=== PATIENT | female | born 1995 | race Caucasian/White ===

== ENCOUNTER 2017-06-21 00:20 | Emergency (ER) | payer SELFPAY ==
[~2017-06-21] VITALS: Ht 160 cm; Wt 92.5 kg
[2017-06-21 00:22] VITALS: BP 143/84; PULSE 124; RESP 24; TEMP 98.8; O2SAT 97
[2017-06-21] MEDS ORDERED: TOPA25TA8 PO (00:37)
--- NOTE | 2017-06-21 00:42 | PD ---
HPI Chief Complaint: Abdominal Pain Time Seen by Provider: 00:33 Travel History International Travel<30 days: No Contact w/Intl Traveler<30days: No Traveled to known affect area: No History of Present Illness HPI The patient is a 21 year old female who presents to the [facility] emergency department with a history of abdominal pain that began this morning. It is in the suprapubic area and radiates to the midepigastric area. It is a constant pain. It is intermittently sharp. She has vomiting x2. She last had diarrhea 3-4 days ago. It occurred all day. She moved her bowels normally today. She has had a recent subjective fever. The patient denies any history of fever, cough, congestion, neck pain, chest pain, shortness of breath, urinary symptoms, or neurologic symptoms. She denies any unusual vaginal discharge. She reports having recent indigestion and heart burn symptoms. LMP 05/29/17. [facility] Past Medical History Narrative Medical The patient's past medical history is significant for migraines, asthma. Asthma: Yes Respiratory: Yes (Asthma) Migraines: Yes Tetanus Vaccination: Unknown Influenza Vaccination: No ?: Unknown LMP: 05/29/17 Past Surgical History Narrative Surgical The patient's past surgical history is significant for lumbar surgery for a herniated disc. Neurologic Surgery: Yes (LUMBAR) Social History Alcohol Use: No Tobacco Use: No Substance Use: No Allergies-Medications (Allergen,Severity, Reaction): Coded Allergies: Codeine (Verified Allergy, Severe, 06/21/17) Morphine (Verified Allergy, Severe, 06/21/17) Percocet (Verified Allergy, Severe, 06/21/17) Uncoded Allergies: aloe vera (Allergy, Severe, 06/21/17) Reported Meds & Prescriptions Reported Meds & Active Scripts Active Bentyl (Dicyclomine HCl) 10 Mg Cap 10 Mg PO TID PRN Reported Topamax (Topiramate) 25 Mg Tab 25 Mg PO BID Review of Systems Except as stated in HPI: all other systems reviewed are Neg General / Constitutional: No: Fever Eyes: No: Visual changes HENT: No: Headaches Cardiovascular: No: Chest Pain or Discomfort Respiratory: No: Shortness of Breath Gastrointestinal: Positive: Nausea, Vomiting, Diarrhea, Abdominal Pain, Constipation, Changes in Bowel Habits, Indigestion, No: Hematemesis, Hematochezia, Loss of Appetite Genitourinary: No: Dysuria Musculoskeletal: No: Pain Skin: No Rash Neurologic: No: Weakness Psychiatric: No: Depression Endocrine: No: Polydipsia Hematologic/Lymphatic: No: Easy Bruising Physical Exam Narrative General: The patient is a well-developed well-nourished female in no acute distress. Head and Neck exam: Head is normocephalic atraumatic. Eyes: EOMI, pupils are equal round and reactive to light. Nose: Midline septum with pink mucous membranes Mouth: Dentition unremarkable. Moist mucus membranes. Posterior oropharynx is not erythematous. No tonsillar hypertrophy. Uvula midline. Airway patent. Neck: No palpable lymphadenopathy. No nuchal rigidity. No thyromegaly. Cardiovascular: Regular rate and rhythm without murmurs, gallops, or rubs. Lungs: Clear to auscultation bilaterally. No wheezes, rhonchi, or rales. Abdomen: Soft, with tenderness on palpation of the right upper and right lower quadrant of the abdomen. No point tenderness specifically over McBurney's point. No guarding, rebound, or rigidity. Negative Sinking Spring sign. Normal bowel sounds are audible. Extremities: No clubbing, cyanosis, or edema. 2+ pulses in all 4 extremities. No calf tenderness on palpation. Back: No spinous process tenderness to palpation. No costovertebral angle tenderness to palpation. Neurologic Exam: Grossly nonfocal. Skin Exam: No rash noted. Intact skin that is warm and dry. Data Data Last Documented VS Vital Signs Date Time Temp Pulse Resp B/P Pulse Ox O2 Delivery O2 Flow Rate FiO2 06/21/17 00:45 82 20 117/75 99 Room Air 06/21/17 00:22 98.8 Orders Ed Urine Pregnancytest Poc (06/21/17 00:45) Complete Blood Count With Diff (06/21/17 00:47) Comprehensive Metabolic Panel (06/21/17 00:47) Urinalysis - C+S If Indicated (06/21/17 00:47) Iv Access Insert/Monitor (06/21/17 00:47) Lipase (06/21/17 00:47) Sodium Chlor 0.9% 1000 Ml Inj (Ns 1000 M (06/21/17 01:00) Ondansetron Inj (Zofran Inj) (06/21/17 01:00) Ct Abd/Pel W Iv Contrast(Rout) (06/21/17 01:55) Iohexol 350 Inj (Omnipaque 350 Inj) (06/21/17 02:46) Labs Laboratory Tests Test 06/21/17 06/21/17 00:50 02:00 White Blood Count 13.5 TH/MM3 Red Blood Count 4.17 MIL/MM3 Hemoglobin 13.0 GM/DL Hematocrit 37.5 % Mean Corpuscular Volume 89.9 FL Mean Corpuscular Hemoglobin 31.2 PG Mean Corpuscular Hemoglobin 34.7 % Concent Red Cell Distribution Width 12.5 % Platelet Count 347 TH/MM3 Mean Platelet Volume 8.3 FL Neutrophils (%) (Auto) 59.4 % Lymphocytes (%) (Auto) 31.6 % Monocytes (%) (Auto) 7.3 % Eosinophils (%) (Auto) 1.1 % Basophils (%) (Auto) 0.6 % Neutrophils # (Auto) 8.1 TH/MM3 Lymphocytes # (Auto) 4.3 TH/MM3 Monocytes # (Auto) 1.0 TH/MM3 Eosinophils # (Auto) 0.1 TH/MM3 Basophils # (Auto) 0.1 TH/MM3 CBC Comment DIFF FINAL Differential Comment Sodium Level 141 MEQ/L Potassium Level 3.9 MEQ/L Chloride Level 107 MEQ/L Carbon Dioxide Level 25.2 MEQ/L Anion Gap 9 MEQ/L Blood Urea Nitrogen 10 MG/DL Creatinine 0.78 MG/DL Estimat Glomerular Filtration 93 ML/MIN Rate Random Glucose 118 MG/DL Calcium Level 8.9 MG/DL Total Bilirubin 0.2 MG/DL Aspartate Amino Transf 17 U/L (AST/SGOT) Alanine Aminotransferase 25 U/L (ALT/SGPT) Alkaline Phosphatase 80 U/L Total Protein 7.5 GM/DL Albumin 3.7 GM/DL Lipase 90 U/L Urine Color YELLOW Urine Turbidity HAZY Urine pH 5.5 Urine Specific Hana 1.028 Urine Protein TRACE mg/dL Urine Glucose (UA) NEG mg/dL Urine Ketones NEG mg/dL Urine Occult Blood NEG Urine Nitrite NEG Urine Bilirubin NEG Urine Urobilinogen 2.0 MG/DL Urine Leukocyte Esterase NEG Urine RBC LESS THAN 1 /hpf Urine WBC 1 /hpf Urine Squamous Epithelial 3 /hpf Cells Urine Bacteria OCC /hpf Urine Mucus FEW /lpf Microscopic Urinalysis Comment CULT NOT INDICATED MDM Medical Decision Making Medical Screen Exam Complete: Yes Emergency Medical Condition: Yes Medical Record Reviewed: Yes Interpretation(s) Last Impressions Abdomen/Pelvis CT 06/21/17 0155 Signed Impressions: Service Date/Time: Wednesday, June 21, 2017 02:41 - CONCLUSION: 1. Unremarkable bowel gas pattern. 2. Mild hepatic steatosis. 3. Unremarkable gallbladder. Joe Carroll MD Differential Diagnosis Appendicitis, versus biliary colic, versus acute cholecystitis, versus colitis, versus ectopic , versus gastroenteritis, versus trapped gas, versus colonic spasm Narrative Course During the course of the patients emergency department visit, the patients history, examination, and differential diagnosis were reviewed with the patient. The patient had IV access obtained and blood work sent for analysis. The patient was put on a court monitor with oximetry and blood pressure monitoring. The patient was initially provided normal saline 1 L IV fluid bolus, Zofran 4 mg IV. The patients laboratory studies were reviewed and remarkable for a white count of 13.5, hemoglobin 13, platelets 347 with an unremarkable differential, CMP is remarkable for glucose of 118, lipase 90, urinalysis is unremarkable Radiology studies were reviewed and remarkable for a CT scan of the abdomen and pelvis that shows an unremarkable bowel gas pattern, mild hepatic steatosis, unremarkable gallbladder. The patient will be discharged home with a perception for Bentyl and Zofran. The patient is resting comfortably and feels better, is alert and in no distress. The patients results and examination findings were discussed with the patient. The repeat examination is unremarkable and benign. The history, exam, diagnostic testing, and current condition do not suggest any significant pathology to warrant further testing, continued ED treatment, admission, or surgical evaluation at this point. The vital signs have been stable. The patient does not have uncontrollable pain, intractable vomiting, or other significant symptoms. The patient's condition is stable and appropriate for discharge. The patient will pursue further outpatient evaluation with a primary care physician or other designated or consulting physician as indicated in the discharge instructions. The patient expressed understanding and was agreeable with this plan. Diagnosis Primary Impression: Abdominal pain Qualified Code: R10.9 - Abdominal pain, unspecified location Additional Impression: Nausea, vomiting, and diarrhea Referrals: Primary Care Physician 3 days Patient Instructions: Abdominal Pain (ED), Acute Diarrhea (ED), Acute Nausea and Vomiting (ED), General Instructions Med/Other Pt SpecificInfo: Prescription(s) given Scripts Ondansetron Odt (Zofran Odt)4 Mg Tab4 Mg SL Q6HR PRN (Nausea/Vomiting) #7 TAB Ref 0 Prov:Hallie Chisholm MD 06/21/17 Dicyclomine (Bentyl)10 Mg Cap10 Mg PO TID PRN (cramping) #12 CAP Ref 0 Prov:Hallie Chisholm MD 06/21/17 Disposition: 01 DISCHARGE HOME Condition: Stable Hallie Chisholm MD Jun 21, 2017 00:42
[2017-06-21 00:45] VITALS: BP 117/75; PULSE 82; RESP 20; O2SAT 99
[2017-06-21] MEDS ORDERED: ONDANSETRON HCL 4 MG/2 ML VIAL IV ONE (01:00)
[2017-06-21] MEDS ORDERED: SODIUM CHLOR 0.9% 1000 ML INJ 1,000 ML IV ONE (01:00)
[2017-06-21 01:11] LABS: AUTOMATED NEUTROPHIL # 8.1 TH/MM3 (1.8-7.7); BASOPHIL # 0.1 TH/MM3 (0-0.2); BASOPHIL % 0.6 % (0.0-2.0); EOSINOPHIL # 0.1 TH/MM3 (0-0.4); EOSINOPHIL % 1.1 % (0.0-4.0); HEMATOCRIT 37.5 % (35.0-46.0); HEMO FLAGS DIFF FINAL; LYMPH % 31.6 % (9.0-44.0); LYMPHOCYTE # 4.3 TH/MM3 (1.0-4.8); MEAN CELL VOLUME 89.9 FL (80.0-100.0); MEAN CORPUSCULAR HEMOGLOBIN 31.2 PG (27.0-34.0); MEAN CORPUSCULAR HGB CONC 34.7 % (32.0-36.0); MONO % 7.3 % (0.0-8.0); NEUT % 59.4 % (16.0-70.0); PLATELET COUNT 347 TH/MM3 (150-450); RED BLOOD COUNT 4.17 MIL/MM3 (4.00-5.30); RED CELL DISTRIBUTION WIDTH 12.5 % (11.6-17.2); WHITE BLOOD COUNT 13.5 TH/MM3 (4.0-11.0)
[2017-06-21 01:37] LABS: ALKALINE PHOSPHATASE 80 U/L (45-117); ALT (GPT) 25 U/L (10-53); TOTAL BILIRUBIN ADULT 0.2 MG/DL (0.2-1.0)
[2017-06-21 01:57] LABS: ANION GAP 9 MEQ/L (5-15); AST (GOT) 17 U/L (15-37); BICARBONATE 25.2 MEQ/L (21.0-32.0); BLOOD UREA NITROGEN 10 MG/DL (7-18); CHLORIDE 107 MEQ/L (98-107); GLOMERULAR FILTRATION RATE 93 ML/MIN (>89); POTASSIUM 3.9 MEQ/L (3.5-5.1); SODIUM (NA) 141 MEQ/L (136-145)
[2017-06-21 02:20] LABS: BACTERIA, URINE OCC /hpf; BLOOD, URINE NEG (NEG); COMMENT (UR) CULT NOT INDICATED; CULTURE IF INDICATED CULT NOT INDICATED; GLUCOSE,URINE NEG (NEG); KETONE, URINE NEG (NEG); MUCUS URINE FEW /lpf (OCC); NITRITE,URINE NEG (NEG); PH, URINE 5.5 (5.0-8.5); SQUAMOUS EPITHELIAL CELL URINE 3 /hpf (0-5); URINE COLOR YELLOW (YELLW/STRAW)
[2017-06-21] MEDS ORDERED: IOHEXOL 350 MG/ML 10 ML VIAL (for RAD DIAG) IV ONE (02:46)
--- NOTE | 2017-06-21 03:11 | RADRPT ---
EXAM DATE/TIME: 06/21/2017 02:41 [facility] COMPARISON: No previous studies available for comparison. INDICATIONS : Nausea and vomiting x1 week. Medial abdominal pain today. IV CONTRAST: 96 cc Omnipaque 350 (iohexol) IV ORAL CONTRAST: No oral contrast ingested. RADIATION DOSE: 11.09 CTDIvol (mGy) MEDICAL HISTORY : Asthma. SURGICAL HISTORY : Lumbar surgery. ENCOUNTER: Initial ACUITY: 1 day PAIN SCALE: 8/10 LOCATION: medial abdomen TECHNIQUE: Volumetric scanning of the abdomen and pelvis was performed. Using automated exposure control and ad justment of the mA and/or kV according to patient size, radiation dose was kept as low as reasonably achievable to obtain optimal diagnostic quality images. DICOM format image data is available electro nically for review and comparison. FINDINGS: LOWER LUNGS: The visualized lower lungs are clear. LIVER: Homogeneous density without lesion. There is no dilation of the biliary tree. No calcified gallston es. The gallbladder is unremarkable. There is mild hepatic steatosis. SPLEEN: Normal size without lesion. PANCREAS: Within normal limits. KIDNEYS: Normal in size and shape. There is no mass, stone or hydronephrosis. ADRENAL GLANDS: Within normal limits. VASCULAR: There is no aortic aneurysm. BOWEL/MESENTERY: No oral contrast was given and sensitivity. The stomach, small bowel, and colon demonstrate no acute abnormality. There is no free intraperitoneal air or fluid. ABDOMINAL WALL: Within normal limits. RETROPERITONEUM: There is no lymphadenopathy. BLADDER: No wall thickening or mass. REPRODUCTIVE: Within normal limits. INGUINAL: There is no lymphadenopathy or hernia. MUSCULOSKELETAL: Within normal limits for patient age. CONCLUSION: 1. Unremarkable bowel gas pattern. 2. Mild hepatic steatosis. 3. Unremarkable gallbladder. Joe Carroll MD on June 21, 2017 at 3:08 Board Certified Radiologist. This report was verified electronically.
[2017-06-21] MEDS ORDERED: DICY10 PO (03:34)
[2017-06-21] MEDS ORDERED: ZOFR4TAB3 SL (03:37)
[2017-06-21 03:55] VITALS: BP 108/53
== END 2017-06-21 03:56 | disposition home or self-care (01) ==
LOC: NEPE 00:20
DX: R10.9 Unspecified abdominal pain (principal); R19.7 Diarrhea, unspecified; R11.2 Nausea with vomiting, unspecified
CPT/HCPCS: 74177; 80053; 81001; 83690; 84703; 85025; 96374; 99285; J2405; J7030; Q9967

== ENCOUNTER 2017-08-26 19:09 | Emergency (ER) | payer SELFPAY ==
[~2017-08-26] VITALS: Ht 160 cm; Wt 92.5 kg
[~2017-08-26 19:09] MED LIST: DICY10 PO; TOPA25TA8 PO; ZOFR4TAB3 SL
[2017-08-26 19:11] VITALS: BP 134/87; PULSE 93; RESP 16; TEMP 98.3; O2SAT 98
[2017-08-26 20:15] VITALS: BP 107/73; PULSE 98; RESP 16; O2SAT 98
[2017-08-26 20:15] LABS: ANION GAP 9 MEQ/L (5-15); BICARBONATE 24.1 MEQ/L (21.0-32.0); BLOOD UREA NITROGEN 11 MG/DL (7-18); CHLORIDE 105 MEQ/L (98-107); GLOMERULAR FILTRATION RATE 117 ML/MIN (>89); POTASSIUM 3.5 MEQ/L (3.5-5.1); SODIUM (NA) 138 MEQ/L (136-145)
[2017-08-26] MEDS ORDERED: KETOROLAC TROMETHAMINE 30 MG/ML (IVP) VIAL IV PUSH ONE (20:15)
[2017-08-26] MEDS ORDERED: SODIUM CHLOR 0.9% 1000 ML INJ 1,000 ML IV ONE (20:15)
[2017-08-26 20:20] LABS: CREATINE KINASE 159 U/L (26-192)
--- NOTE | 2017-08-26 20:29 | PD ---
HPI Chief Complaint: Chest Pain Time Seen by Provider: 20:14 Travel History International Travel<30 days: No Contact w/Intl Traveler<30days: No Traveled to known affect area: No History of Present Illness HPI The patient is a 21-year-old female who presents to the emergency department for chest pain. The patient states she developed chest pain one week ago which is anterior, substernal, sharp, occasionally described as pressure, nonradiating, worse with inspiration. The patient does note mild shortness of breath with the chest pain, worse with exertion, when she is at work. The patient works at the [employer]. The patient also complains of mild nausea, usually at approximately 4 AM on a daily basis. She does note a few episodes of vomiting, denies any diarrhea. She does complain of constipation, however, had a bowel movement earlier today at work which was normal. She does note intermittent sweats but denies any actual fever. She states she had a URI several weeks ago. The patient denies any history of pulmonary embolism, DVT, recent surgery, recent hospitalizations, and her only travel has been from [place], [place], to the local area. She does have a family history with her mother having blood clots in the upper extremities. The patient's last menstrual cycle was July 07, 2017, she had a negative test in triage. She denies any known history of coronary artery disease, hypertension, hyperlipidemia, or diabetes. The patient does not use cigarettes, however, does "vape." PFSH Past Medical History Asthma: Yes Diminished Hearing: No Respiratory: Yes (Asthma) Migraines: Yes Tetanus Vaccination: Unknown Influenza Vaccination: No ?: Unknown LMP: 07/07/17 Past Surgical History Narrative Surgical Elbow surgery, back surgery Neurologic Surgery: Yes (LUMBAR) Social History Narrative Social History Vapes Alcohol Use: No Tobacco Use: No Substance Use: No Allergies-Medications (Allergen,Severity, Reaction): Coded Allergies: acetaminophen (Unverified Allergy, Severe, 07/06/17) codeine (Unverified Allergy, Severe, 07/06/17) morphine (Unverified Allergy, Severe, 07/06/17) oxycodone (Unverified Allergy, Severe, 07/06/17) Uncoded Allergies: aloe vera (Allergy, Severe, 06/21/17) Reported Meds & Prescriptions Reported Meds & Active Scripts Active Reported Topamax (Topiramate) 25 Mg Tab 25 Mg PO BID Review of Systems Except as stated in HPI: all other systems reviewed are Neg General / Constitutional: No: Fever, Chills HENT: No: Lightheadedness Cardiovascular: Positive: Chest Pain or Discomfort, Dyspnea on exertion Respiratory: Positive: Shortness of Breath, Pleuritic Pain, No: Cough Gastrointestinal: Positive: Nausea, Vomiting, Constipation, No: Diarrhea, Abdominal Pain Musculoskeletal: No: Edema Neurologic: No: Dizziness Physical Exam Narrative GENERAL: Awake, alert, pleasant 21-year-old female who appears her stated age and is in no acute respiratory distress. SKIN: Focused skin assessment warm/dry. HEAD: Atraumatic. Normocephalic. EYES: Pupils equal and round. No scleral icterus. No injection or drainage. ENT: No nasal bleeding or discharge. Mucous membranes pink and moist. NECK: Trachea midline. No JVD. CARDIOVASCULAR: Regular rate and rhythm. No murmur appreciated. Heart rate in the 90s. Palpation of the chest wall produces pain, however, does not reproduce the patient's pain. RESPIRATORY: No accessory muscle use. Clear to auscultation. Breath sounds equal bilaterally. GASTROINTESTINAL: Abdomen soft, non-tender, nondistended. No epigastric tenderness. No rebound tenderness, guarding, or rigidity. MUSCULOSKELETAL: No obvious deformities. No clubbing. No cyanosis. No edema. Calves are soft bilaterally. NEUROLOGICAL: Awake and alert. No obvious cranial nerve deficits. Motor grossly within normal limits. Normal speech. PSYCHIATRIC: Appropriate mood and affect; insight and judgment normal. Data Data Last Documented VS Vital Signs Date Time Temp Pulse Resp B/P (MAP) Pulse Ox O2 Delivery O2 Flow Rate FiO2 08/26/17 20:17 83 08/26/17 20:15 16 107/73 (84) 98 Room Air 08/26/17 19:11 98.3 Orders Orders Electrocardiogram (08/26/17 19:18) Complete Blood Count With Diff (08/26/17 19:18) Basic Metabolic Panel (Bmp) (08/26/17 19:18) Ckmb (Isoenzyme) Profile (08/26/17 19:18) Troponin I (08/26/17 19:18) D-Dimer (08/26/17 20:14) Ketorolac Inj (Toradol Inj) (08/26/17 20:15) Sodium Chlor 0.9% 1000 Ml Inj (Ns 1000 M (08/26/17 20:15) Chest, Single Ap (08/26/17 ) CKMB (08/26/17 19:20) CKMB% (08/26/17 19:20) Ed Urine Pregnancytest Poc (08/26/17 20:38) Labs Laboratory Tests Test 08/26/17 19:20 08/26/17 20:14 08/26/17 20:35 Blood Urea Nitrogen 11 MG/DL Creatinine 0.64 MG/DL Random Glucose 79 MG/DL Calcium Level 9.5 MG/DL Sodium Level 138 MEQ/L Potassium Level 3.5 MEQ/L Chloride Level 105 MEQ/L Carbon Dioxide Level 24.1 MEQ/L Anion Gap 9 MEQ/L Estimat Glomerular Filtration Rate 117 ML/MIN Total Creatine Kinase 159 U/L Creatine Kinase MB 1.3 NG/ML Troponin I LESS THAN 0.02 NG/ML D-Dimer Quantitative (PE/DVT) 0.19 MG/L FEU White Blood Count 10.5 TH/MM3 Red Blood Count 4.23 MIL/MM3 Hemoglobin 13.1 GM/DL Hematocrit 38.8 % Mean Corpuscular Volume 91.7 FL Mean Corpuscular Hemoglobin 31.1 PG Mean Corpuscular Hemoglobin Concent 33.9 % Red Cell Distribution Width 12.7 % Platelet Count 352 TH/MM3 Mean Platelet Volume 7.9 FL Neutrophils (%) (Auto) 58.2 % Lymphocytes (%) (Auto) 32.1 % Monocytes (%) (Auto) 7.8 % Eosinophils (%) (Auto) 0.9 % Basophils (%) (Auto) 1.0 % Neutrophils # (Auto) 6.1 TH/MM3 Lymphocytes # (Auto) 3.4 TH/MM3 Monocytes # (Auto) 0.8 TH/MM3 Eosinophils # (Auto) 0.1 TH/MM3 Basophils # (Auto) 0.1 TH/MM3 CBC Comment DIFF FINAL Differential Comment MDM Medical Decision Making Medical Screen Exam Complete: Yes Emergency Medical Condition: Yes Medical Record Reviewed: Yes Interpretation(s) EKG reveals sinus tachycardia with a heart rate of 108. Inverted T waves noted in lead V3 and V4. Laboratory Tests Test 08/26/17 19:20 08/26/17 20:14 08/26/17 20:35 Blood Urea Nitrogen 11 MG/DL Creatinine 0.64 MG/DL Random Glucose 79 MG/DL Calcium Level 9.5 MG/DL Sodium Level 138 MEQ/L Potassium Level 3.5 MEQ/L Chloride Level 105 MEQ/L Carbon Dioxide Level 24.1 MEQ/L Anion Gap 9 MEQ/L Estimat Glomerular Filtration Rate 117 ML/MIN Total Creatine Kinase 159 U/L Creatine Kinase MB 1.3 NG/ML Troponin I LESS THAN 0.02 NG/ML D-Dimer Quantitative (PE/DVT) 0.19 MG/L FEU White Blood Count 10.5 TH/MM3 Red Blood Count 4.23 MIL/MM3 Hemoglobin 13.1 GM/DL Hematocrit 38.8 % Mean Corpuscular Volume 91.7 FL Mean Corpuscular Hemoglobin 31.1 PG Mean Corpuscular Hemoglobin Concent 33.9 % Red Cell Distribution Width 12.7 % Platelet Count 352 TH/MM3 Mean Platelet Volume 7.9 FL Neutrophils (%) (Auto) 58.2 % Lymphocytes (%) (Auto) 32.1 % Monocytes (%) (Auto) 7.8 % Eosinophils (%) (Auto) 0.9 % Basophils (%) (Auto) 1.0 % Neutrophils # (Auto) 6.1 TH/MM3 Lymphocytes # (Auto) 3.4 TH/MM3 Monocytes # (Auto) 0.8 TH/MM3 Eosinophils # (Auto) 0.1 TH/MM3 Basophils # (Auto) 0.1 TH/MM3 CBC Comment DIFF FINAL Differential Comment Last Impressions Chest X-Ray 08/26/17 0000 Signed Impressions: Service Date/Time: August 20:22 - CONCLUSION: Normal examination. Alonso Britton MD Differential Diagnosis Differential diagnosis includes pleurisy, URI, pulmonary embolism, pneumonia, bronchitis, myocarditis, pericarditis, viral syndrome, GERD, esophageal spasm, gastritis. Narrative Course IV was established, labs are drawn and sent, and the patient was placed on cardiac telemetry monitoring and continuous pulse oximetry monitoring. EKG was ordered and interpreted. D-dimer was sent to lab. Bedside UA test was negative according to triage. Chest x-ray was obtained. The patient was administered Toradol and IV fluids. Chest x-rays unremarkable. CBC is within normal limits. Troponin was less than 0.02. D-dimer 0.19, therefore, no indication for CT pulmonary angiogram. The patient has pleuritic chest pain, most likely viral in nature. The patient will be treated with anti- inflammatories and is advised to follow-up with her primary physician. Return if symptoms worsen or progress. After Toradol and IV fluids patient's heart rate came down into the 80s. The patient was reevaluated at 9:15 PM, her pain had resolved. Most likely this is a viral pleurisy versus atypical reflux. The patient we placed on ibuprofen. She will be provided a copy of her labs and x-ray results at discharge. She is advised to follow-up with a primary physician. Diagnosis Primary Impression: Atypical chest pain Patient Instructions: General Instructions Additional Instructions: Please provide the patient a copy of her labs and x-ray results at discharge. Follow-up with a primary physician. Ibuprofen as directed. Return if symptoms worsen or progress. Med/Other Pt SpecificInfo: Prescription(s) given Scripts Ibuprofen (Ibuprofen) 600 Mg Tab 600 MG PO Q6H Y for Pain/Inflammation, #20 TAB 0 Refills Prov: Will Clinton MD 08/26/17 Disposition: DISCHARGE HOME Condition: Stable Will Clinton MD Aug 26, 2017 20:29
[2017-08-26 20:32] LABS: CKMB 1.3 NG/ML (0.5-3.6)
[2017-08-26 20:49] LABS: AUTOMATED NEUTROPHIL # 6.1 TH/MM3 (1.8-7.7); BASOPHIL # 0.1 TH/MM3 (0-0.2); EOSINOPHIL # 0.1 TH/MM3 (0-0.4); EOSINOPHIL % 0.9 % (0.0-4.0); HEMATOCRIT 38.8 % (35.0-46.0); HEMO FLAGS DIFF FINAL; LYMPH % 32.1 % (9.0-44.0); LYMPHOCYTE # 3.4 TH/MM3 (1.0-4.8); MEAN CELL VOLUME 91.7 FL (80.0-100.0); MEAN CORPUSCULAR HEMOGLOBIN 31.1 PG (27.0-34.0); MEAN CORPUSCULAR HGB CONC 33.9 % (32.0-36.0); MONO % 7.8 % (0.0-8.0); NEUT % 58.2 % (16.0-70.0); PLATELET COUNT 352 TH/MM3 (150-450); RED BLOOD COUNT 4.23 MIL/MM3 (4.00-5.30); RED CELL DISTRIBUTION WIDTH 12.7 % (11.6-17.2); WHITE BLOOD COUNT 10.5 TH/MM3 (4.0-11.0)
--- NOTE | 2017-08-26 21:11 | RADRPT ---
EXAM DATE/TIME: 08/26/2017 20:22 [facility] COMPARISON: No previous studies available for comparison. INDICATIONS : Chest pain MEDICAL HISTORY : Asthma SURGICAL HISTORY : lumbar surgery ENCOUNTER: Initial ACUITY: 1 week PAIN SCORE: 5/10 LOCATION: chest FINDINGS: A single view of the chest demonstrates the lungs to be symmetrically aerated without evidence of mas s, infiltrate or effusion. The cardiomediastinal contours are unremarkable. Osseous structures are intact. CONCLUSION: Normal examination. Alonso Britton MD on August 26, 2017 at 21:10 Board Certified Radiologist. This report was verified electronically.
[2017-08-26] MEDS ORDERED: IBUP-232 PO (21:19)
--- NOTE | 2017-08-27 13:04 | EKG ---
Date Performed: 08/26/2017 Time Performed: 19:26:15 PTAGE: 21 years EKG: SINUS TACHYCARDIA NONSPECIFIC T-WAVE ABNORMALITY ABNORMAL RHYTHM ECG NO PREVIOUS TRACING DOCTOR: Domenico Roberts Interpretating Date/Time 08/27/2017 13:02:55
== END 2017-08-26 21:36 | disposition home or self-care (01) ==
LOC: NEPE 19:09
DX: R07.89 Other chest pain (principal); R94.31 Abnormal electrocardiogram [ECG] [EKG]; J45.909 Unspecified asthma, uncomplicated; K59.00 Constipation, unspecified
CPT/HCPCS: 71010; 80048; 82550; 82552; 84484; 84703; 85025; 85379; 93005; 96360; 99285; J1885; J7030

== ENCOUNTER 2017-11-11 09:50 | Emergency (ER) | payer OTHER ==
[~2017-11-11] VITALS: Ht 160 cm; Wt 100.0 kg
[~2017-11-11 09:50] MED LIST changes: -DICY10 PO; +IBUP-232 PO; -TOPA25TA8 PO; +TOPI25 PO; -ZOFR4TAB3 SL
[2017-11-11 09:51] VITALS: BP 130/82; PULSE 110; RESP 22; TEMP 98.6; O2SAT 96
--- NOTE | 2017-11-11 10:11 | PD ---
HPI Chief Complaint: Fall Time Seen by Provider: 09:59 Travel History International Travel<30 days: No Contact w/Intl Traveler<30days: No Traveled to known affect area: No History of Present Illness HPI This is a 21-year-old female who was working at [employer] when she fell backwards after slipping and hitting her head on some shelves. She did not lose consciousness. She's had a moderate headache since the episode, constant, mostly in the back of her head associated with dizziness and some blurry vision. She is not on any blood thinners. She remembers the accident. She has not vomited. PFSH Past Medical History Asthma: Yes Diminished Hearing: No Respiratory: Yes (Asthma) Migraines: Yes ?: Unknown LMP: 2 months ago Past Surgical History Neurologic Surgery: Yes (LUMBAR) Social History Alcohol Use: No Tobacco Use: No Substance Use: No Allergies-Medications (Allergen,Severity, Reaction): Coded Allergies: acetaminophen (Unverified Allergy, Severe, 07/06/17) codeine (Unverified Allergy, Severe, 07/06/17) morphine (Unverified Allergy, Severe, 07/06/17) oxycodone (Unverified Allergy, Severe, 07/06/17) Uncoded Allergies: aloe vera (Allergy, Severe, 06/21/17) Reported Meds & Prescriptions Reported Meds & Active Scripts Active Reported Topamax (Topiramate) 25 Mg Tab 25 Mg PO BID Review of Systems Except as stated in HPI: all other systems reviewed are Neg Physical Exam Narrative GENERAL:Well appearing, no acute distress SKIN: Focused skin assessment warm and dry. HEAD: Atraumatic. Normocephalic. EYES: Pupils equal and round. No injection or drainage. ENT: Moist mucous membranes. No hemotympanum. NECK: Trachea midline. CARDIOVASCULAR: Regular rate and rhythm. No murmur appreciated. RESPIRATORY: Clear to auscultation. Breath sounds equal bilaterally. GASTROINTESTINAL: Abdomen soft, non-tender, nondistended. MUSCULOSKELETAL: No obvious deformities. NEUROLOGICAL: Awake and alert. GCS 15. GNo obvious cranial nerve deficits. No dysarthria or aphasia. No upper or lower extremity drift. No upper extremity ataxia. PSYCHIATRIC: Appropriate mood and affect; insight and judgment normal. Data Data Last Documented VS Vital Signs Date Time Temp Pulse Resp B/P (MAP) Pulse Ox O2 Delivery O2 Flow Rate FiO2 11/11/17 09:51 98.6 110 22 130/82 (98) 96 Room Air MDM Medical Decision Making Medical Screen Exam Complete: Yes Emergency Medical Condition: Yes Interpretation(s) Afebrile, tachycardic, normotensive Differential Diagnosis Intracranial hemorrhage, concussion, hematoma, cervical spine fracture Narrative Course This is a 21-year-old female who presents to the emergency department following a closed head injury. She did not lose consciousness, has no evidence of skull fracture, has no evidence of basilar skull fracture, has not vomited, and remembers the accident. She is negative by [place] head CT rules. She appears very well on exam with a normal neurologic exam and a GCS of 15. I don' t think CT imaging is warranted and I suspect this is a concussion. Patient expressed understanding of return instructions. She'll be discharged home. Diagnosis Primary Impression: Concussion Qualified Codes: S06.0X0A - Concussion without loss of consciousness, initial encounter Patient Instructions: General Instructions Departure Forms: Tests/Procedures, Work Release Enter return to work date: Nov 12, 2017 Additional Instructions: Return to the emergency department if you develop trouble walking or talking, vomiting, numbness, weakness, or severe headache. A concussion does not usually need treatment. Most concussions get better on their own, but it can take time. Some peoples symptoms go away within minutes to hours. Other people have symptoms for weeks to months. When symptoms last a long time, doctors call it postconcussion syndrome. To help your brain heal after a concussion, you can: Rest your body - Make sure to get plenty of sleep. When you are awake, you should avoid heavy exercise or too much physical activity. Rest your brain - Avoid doing activities that need concentration or a lot of attention. Not drink alcohol for 2 days after the injury Take a pain-relieving medicine, if you have a headache Follow up with your primary care physician in one week if you are not back to your normal self. Med/Other Pt SpecificInfo: No Change to Meds Disposition: 01 DISCHARGE HOME Condition: Stable Tania Torres MD Nov 11, 2017 10:11
[2017-11-12] MEDS ORDERED: IBUP-232 PO (03:44)
== END 2017-11-11 10:22 | disposition home or self-care (01) ==
LOC: NEPD 09:50
DX: S06.0X0A Concussion without loss of consciousness, initial encounter (principal); R00.0 Tachycardia, unspecified; J45.909 Unspecified asthma, uncomplicated; W01.198A Fall on same level from slipping, tripping and stumbling with subsequent striking against other object, initial encounter; Z79.899 Other long term (current) drug therapy; Z88.6 Allergy status to analgesic agent; Z88.5 Allergy status to narcotic agent
CPT/HCPCS: 99283

== ENCOUNTER 2017-11-12 00:54 | Emergency (ER) | payer OTHER ==
[~2017-11-12] VITALS: Ht 160 cm; Wt 102.3 kg
[2017-11-12 00:56] VITALS: BP 118/81; PULSE 81; RESP 16; TEMP 98.4; O2SAT 97
[2017-11-12] MEDS ORDERED: SODIUM CHLOR 0.9% 1000 ML INJ 1,000 ML IV ONE (02:13)
[2017-11-12] MEDS ORDERED: ONDANSETRON HCL 4 MG/2 ML VIAL IVP ONE (02:15)
[2017-11-12] MEDS ORDERED: SODIUM CHLORIDE 0.9% FLUSH 10 ML FLUSH IVF PRN (02:15)
--- NOTE | 2017-11-12 02:23 | PD ---
HPI Chief Complaint: Syncope/Near-Syncope Time Seen by Provider: 02:03 Travel History International Travel<30 days: No Contact w/Intl Traveler<30days: No Traveled to known affect area: No History of Present Illness HPI The patient is a 21-year-old female who presents to the emergency department after syncopal episode. The patient states she tripped and fell at work earlier today, striking her head. The patient denied any loss consciousness at that time and was evaluated in the emergency department. The patient was discharged home and advised to return if her symptoms worsen or progress. The patient states she returned home, sleeping in bed, which she went to get out of bed she had a syncopal episode. The patient states she awakened on the floor, next to the door. The patient states she had a syncopal episode on the tile floor. She denies any bruising to the face, arms, or legs. She does not recall the initial length of loss consciousness with a syncopal episode, however, denied loss of consciousness with the initial injury at work. The patient complains of a mild headache but denies any neck pain. She does note mild nausea without any vomiting. She denies any focal deficits. She denies taking any anticoagulants. Symptoms are moderate, exacerbated after head injury, there are no current alleviating factors. PFSH Past Medical History Asthma: Yes Diminished Hearing: No Respiratory: Yes (Asthma) Migraines: Yes Tetanus Vaccination: < 5 Years Influenza Vaccination: No ?: Unknown : 1 Past Surgical History Neurologic Surgery: Yes (LUMBAR) Social History Alcohol Use: Yes (occ) Tobacco Use: No Substance Use: No Allergies-Medications (Allergen,Severity, Reaction): Coded Allergies: acetaminophen (Unverified Allergy, Severe, 07/06/17) codeine (Unverified Allergy, Severe, 07/06/17) morphine (Unverified Allergy, Severe, 07/06/17) oxycodone (Unverified Allergy, Severe, 07/06/17) Uncoded Allergies: aloe vera (Allergy, Severe, 06/21/17) Reported Meds & Prescriptions Reported Meds & Active Scripts Active Review of Systems Except as stated in HPI: all other systems reviewed are Neg Eyes: No: Blurred Vision HENT: Positive: Headaches, Lightheadedness, No: Neck Stiffness, Neck Pain Cardiovascular: Positive: Syncope, No: Chest Pain or Discomfort, Palpitations, Irregular Rhythm, Tachycardia, Diaphoresis Respiratory: No: Shortness of Breath Gastrointestinal: Positive: Nausea, No: Vomiting, Abdominal Pain Musculoskeletal: No: Pain Neurologic: Positive: Syncope, Headache, No: Focal Abnormalities, Change in Mentation, Paresthesia, Sensory Disturbance Physical Exam Narrative GENERAL: Awake, alert, pleasant 21-year-old female who appears her stated age and is in no acute respiratory distress. SKIN: Focused skin assessment warm/dry. HEAD: Atraumatic. Normocephalic. EYES: Pupils equal and round. 4 mm bilateral and reactive. EOMs are intact. Patient is able to see fingers at a distance of 2 feet without difficulty. ENT: No nasal bleeding or discharge. Mucous membranes pink and moist. NECK: Trachea midline. No JVD. No tenderness of the cervical vertebrae. CARDIOVASCULAR: Regular rate and rhythm. No murmur appreciated. Heart rate in the 90s. RESPIRATORY: No accessory muscle use. Clear to auscultation. Breath sounds equal bilaterally. GASTROINTESTINAL: Abdomen soft, non-tender, nondistended. No rebound tenderness. MUSCULOSKELETAL: No obvious deformities. No clubbing. No cyanosis. No edema. NEUROLOGICAL: Awake and alert. No obvious cranial nerve deficits. Motor grossly within normal limits. Normal speech. Nonfocal. Oriented 4. Follows commands without difficult. Back: Well-healed scar in the lower midline of the lumbar region. PSYCHIATRIC: Appropriate mood and affect; insight and judgment normal. Data Data Last Documented VS Vital Signs Date Time Temp Pulse Resp B/P (MAP) Pulse Ox O2 Delivery O2 Flow Rate FiO2 11/12/17 00:56 98.4 81 16 118/81 (93) 97 Room Air Orders Orders Electrocardiogram (11/12/17 02:13) Complete Blood Count With Diff (11/12/17 02:13) Comprehensive Metabolic Panel (11/12/17 02:13) Magnesium (Mg) (11/12/17 02:13) Ct Brain W/O Iv Contrast(Rout) (11/12/17 02:13) Ecg Monitoring (11/12/17 02:13) Iv Access Insert/Monitor (11/12/17 02:13) Oximetry (11/12/17 02:13) Ondansetron Inj (Zofran Inj) (11/12/17 02:15) Sodium Chloride 0.9% Flush (Ns Flush) (11/12/17 02:15) Sodium Chlor 0.9% 1000 Ml Inj (Ns 1000 M (11/12/17 02:13) Labs Laboratory Tests Test 11/12/17 02:40 White Blood Count 7.4 TH/MM3 Red Blood Count 4.30 MIL/MM3 Hemoglobin 13.6 GM/DL Hematocrit 39.0 % Mean Corpuscular Volume 90.7 FL Mean Corpuscular Hemoglobin 31.7 PG Mean Corpuscular Hemoglobin Concent 35.0 % Red Cell Distribution Width 12.8 % Platelet Count 325 TH/MM3 Mean Platelet Volume 8.0 FL Neutrophils (%) (Auto) 42.9 % Lymphocytes (%) (Auto) 46.8 % Monocytes (%) (Auto) 8.3 % Eosinophils (%) (Auto) 1.3 % Basophils (%) (Auto) 0.7 % Neutrophils # (Auto) 3.2 TH/MM3 Lymphocytes # (Auto) 3.5 TH/MM3 Monocytes # (Auto) 0.6 TH/MM3 Eosinophils # (Auto) 0.1 TH/MM3 Basophils # (Auto) 0.1 TH/MM3 CBC Comment DIFF FINAL Differential Comment Blood Urea Nitrogen 13 MG/DL Creatinine 0.71 MG/DL Random Glucose 95 MG/DL Total Protein 7.6 GM/DL Albumin 3.7 GM/DL Calcium Level 9.2 MG/DL Magnesium Level 2.0 MG/DL Alkaline Phosphatase 82 U/L Aspartate Amino Transf (AST/SGOT) 24 U/L Alanine Aminotransferase (ALT/SGPT) 38 U/L Total Bilirubin 0.5 MG/DL Sodium Level 140 MEQ/L Potassium Level 3.6 MEQ/L Chloride Level 106 MEQ/L Carbon Dioxide Level 26.8 MEQ/L Anion Gap 7 MEQ/L Estimat Glomerular Filtration Rate 104 ML/MIN [facility] Medical Decision Making Medical Screen Exam Complete: Yes Emergency Medical Condition: Yes Medical Record Reviewed: Yes Interpretation(s) EKG reveals normal sinus rhythm with a rate 84. No evidence of WPW or Brugada syndrome. Laboratory Tests Test 11/12/17 02:40 White Blood Count 7.4 TH/MM3 Red Blood Count 4.30 MIL/MM3 Hemoglobin 13.6 GM/DL Hematocrit 39.0 % Mean Corpuscular Volume 90.7 FL Mean Corpuscular Hemoglobin 31.7 PG Mean Corpuscular Hemoglobin Concent 35.0 % Red Cell Distribution Width 12.8 % Platelet Count 325 TH/MM3 Mean Platelet Volume 8.0 FL Neutrophils (%) (Auto) 42.9 % Lymphocytes (%) (Auto) 46.8 % Monocytes (%) (Auto) 8.3 % Eosinophils (%) (Auto) 1.3 % Basophils (%) (Auto) 0.7 % Neutrophils # (Auto) 3.2 TH/MM3 Lymphocytes # (Auto) 3.5 TH/MM3 Monocytes # (Auto) 0.6 TH/MM3 Eosinophils # (Auto) 0.1 TH/MM3 Basophils # (Auto) 0.1 TH/MM3 CBC Comment DIFF FINAL Differential Comment Blood Urea Nitrogen 13 MG/DL Creatinine 0.71 MG/DL Random Glucose 95 MG/DL Total Protein 7.6 GM/DL Albumin 3.7 GM/DL Calcium Level 9.2 MG/DL Magnesium Level 2.0 MG/DL Alkaline Phosphatase 82 U/L Aspartate Amino Transf (AST/SGOT) 24 U/L Alanine Aminotransferase (ALT/SGPT) 38 U/L Total Bilirubin 0.5 MG/DL Sodium Level 140 MEQ/L Potassium Level 3.6 MEQ/L Chloride Level 106 MEQ/L Carbon Dioxide Level 26.8 MEQ/L Anion Gap 7 MEQ/L Estimat Glomerular Filtration Rate 104 ML/MIN Last Impressions Head CT 11/12/17 0213 Signed Impressions: Service Date/Time: Sunday, November 12, 2017 02:56 - CONCLUSION: Normal examination. Alonso Mancera MD Differential Diagnosis Differential diagnosis includes syncope, closed head injury, intracranial hemorrhage, subarachnoid hemorrhage, epidural hemorrhage, subdural hemorrhage, electrolyte abnormality, concussion. Narrative Course IV was established, labs are drawn and sent, and the patient was placed on cardiac telemetry monitoring and continuous pulse oximetry monitoring. EKG was ordered and interpreted. Noncontrast CT the brain was obtained. The patient was administered 1 L of IV fluids and Zofran [address] the brain is negative. Laboratory evaluation is unremarkable. Electrolyte unremarkable. No evidence of anemia. Patient was evaluated on telemetry monitoring, she had no visible arrhythmias. Patient most likely has a concussion with postconcussive symptoms. She is advised to follow-up with a primary physician. Diagnosis Primary Impression: Postconcussive syndrome Patient Instructions: General Instructions Additional Instructions: Follow-up with her primary physician. Please provide a patient a copy of her CT results and lab results at discharge. No driving until symptoms have resolved. Med/Other Pt SpecificInfo: Prescription(s) given Scripts Ibuprofen (Ibuprofen) 600 Mg Tab 600 MG PO Q6H Y for Pain/Inflammation, #20 TAB 0 Refills Prov: Will Clinton MD 11/12/17 Disposition: 01 DISCHARGE HOME Condition: Stable Will Clinton MD Nov 12, 2017 02:23
[2017-11-12 02:45] LABS: AUTOMATED NEUTROPHIL # 3.2 TH/MM3 (1.8-7.7); BASOPHIL # 0.1 TH/MM3 (0-0.2); BASOPHIL % 0.7 % (0.0-2.0); EOSINOPHIL # 0.1 TH/MM3 (0-0.4); EOSINOPHIL % 1.3 % (0.0-4.0); HEMOGLOBIN 13.6 GM/DL (11.6-15.3); LYMPH % 46.8 % (9.0-44.0); LYMPHOCYTE # 3.5 TH/MM3 (1.0-4.8); MEAN CELL VOLUME 90.7 FL (80.0-100.0); MEAN CORPUSCULAR HEMOGLOBIN 31.7 PG (27.0-34.0); MONO % 8.3 % (0.0-8.0); MONOCYTE # 0.6 TH/MM3 (0-0.9); NEUT % 42.9 % (16.0-70.0); PLATELET COUNT 325 TH/MM3 (150-450); RED CELL DISTRIBUTION WIDTH 12.8 % (11.6-17.2); WHITE BLOOD COUNT 7.4 TH/MM3 (4.0-11.0)
[2017-11-12 03:04] LABS: ALBUMIN 3.7 GM/DL (3.4-5.0); ALT (GPT) 38 U/L (10-53); AST (GOT) 24 U/L (15-37); BICARBONATE 26.8 MEQ/L (21.0-32.0); BLOOD UREA NITROGEN 13 MG/DL (7-18); CALCIUM 9.2 MG/DL (8.5-10.1); CHLORIDE 106 MEQ/L (98-107); CREATININE 0.71 MG/DL (0.50-1.00); GLOMERULAR FILTRATION RATE 104 ML/MIN (>89); GLUCOSE,RANDOM 95 MG/DL (74-106); SODIUM (NA) 140 MEQ/L (136-145)
[2017-11-12 03:06] LABS: ALKALINE PHOSPHATASE 82 U/L (45-117); TOTAL BILIRUBIN ADULT 0.5 MG/DL (0.2-1.0); TOTAL PROTEIN 7.6 GM/DL (6.4-8.2)
--- NOTE | 2017-11-12 03:17 | RADRPT ---
EXAM DATE/TIME: 11/12/2017 02:56 [facility] COMPARISON: No previous studies available for comparison. INDICATIONS : Syncope. RADIATION DOSE: 56.35 CTDIvol (mGy) MEDICAL HISTORY : None SURGICAL HISTORY : None. ENCOUNTER: Initial ACUITY: 1 day PAIN SCALE: 0/10 LOCATION: cranial TECHNIQUE: Multiple contiguous axial images were obtained of the head. Using automated exposure control and adj ustment of the mA and/or kV according to patient size, radiation dose was kept as low as reasonably a chievable to obtain optimal diagnostic quality images. DICOM format image data is available electro nically for review and comparison. FINDINGS: CEREBRUM: The ventricles are normal for age. No evidence of midline shift, mass lesion, hemorrhage or acute in farction. No extra-axial fluid collections are seen. POSTERIOR FOSSA: The cerebellum and brainstem are intact. The 4th ventricle is midline. The cerebellopontine angle i s unremarkable. EXTRACRANIAL: The visualized portion of the orbits is intact. SKULL: The calvaria is intact. No evidence of skull fracture. CONCLUSION: Normal examination. Alonso Mancera MD on November 12, 2017 at 3:12 Board Certified Radiologist. This report was verified electronically.
[2017-11-12] MEDS ORDERED: IBUP-232 PO (03:44)
--- NOTE | 2017-11-12 22:47 | EKG ---
Date Performed: 11/12/2017 Time Performed: 02:18:07 PTAGE: 21 years EKG: Sinus rhythm NON-SPECIFIC ST/T WAVE CHANGES Compared to the PREVIOUS TRACING from 08/26/17, no significant change DOCTOR: Jean Carlos Padilla Interpretating Date/Time 11/12/2017 22:46:02
== END 2017-11-12 04:30 | disposition home or self-care (01) ==
LOC: NEPE 00:54
DX: F07.81 Postconcussional syndrome (principal)
CPT/HCPCS: 70450; 80053; 83735; 85025; 93005; 96361; 96374; 99285; J2405; J7030